=== PATIENT | female | born 2000 | race Two or more races ===

== ENCOUNTER 2020-10-15 23:02 | Emergency (ER) | payer MEDICAID, OTHER ==
[~2020-10-15] VITALS: Ht 152.4 cm; Wt 57.6 kg
[2020-10-16] MEDS ORDERED: ONDANSETRON ODT 4 MG TAB.RAPDIS SL ONE (01:00)
[2020-10-16] MEDS ORDERED: HYDROCODONE/APAP 5-325MG TABLET PO ONE (01:00)
[2020-10-16] MEDS ORDERED: HYDROCODONE/APAP 5-325MG TABLET ONE (01:11)
[2020-10-16] MEDS ORDERED: ONDANSETRON ODT 4 MG TAB.RAPDIS ONE (01:11)
[2020-10-16] MEDS ORDERED: HYDR-4209 PO (01:48)
[2020-10-16] MEDS ORDERED: ONDA4TAB5 PO (01:48)
--- NOTE | 2020-10-16 02:24 | NUR ---
Patient discharged to home in stable condition. Written and verbal after care instructions given. Patient verbalizes understanding of instructions. Stressed follow up or return to ER for worsening s/s.
[2020-10-16 02:25] VITALS: BP 110/78
== END 2020-10-16 02:26 | disposition home or self-care (01) ==
LOC: ER 23:06
DX: R51.9 Headache, unspecified (principal); Z20.822 Contact with and (suspected) exposure to COVID-19
CPT/HCPCS: 70450; Q0162

== ENCOUNTER 2021-02-03 23:41 | Emergency (ER) | payer OTHER ==
[~2021-02-03] VITALS: Ht 152.4 cm; Wt 59.0 kg
[~2021-02-03 23:41] MED LIST: HYDR-4209 PO; ONDA4TAB5 PO
--- NOTE | 2021-02-04 00:02 | NUR ---
Patient walked into ER with steady gait A/Ox3 c/o possible seizure 1hr [employer]. Patient states she was taking in an elevator with friend and her brother when she started feeling light head and started to get weak. She was lead to the floor by her friend and saw her eye rolled back. Patient states she woke up 6 seconds later A/Ox3 and speaking clearly and walked out.
--- NOTE | 2021-02-04 00:07 | NUR ---
Dr. Wynn on bedside for MSE.
[2021-02-04] MEDS ORDERED: ONDANSETRON 4 MG/2 ML VIAL IV ONE (00:30)
[2021-02-04] MEDS ORDERED: IV NORMAL SALINE 1000 ML BAG IV ONE (00:30)
[2021-02-04] MEDS ORDERED: ONDANSETRON 4 MG/2 ML VIAL ONE (00:31)
[2021-02-04 00:39] LABS: HEMATOCRIT 37.7 % (31.2-41.9); MEAN CORPUSCULAR HEMOGLOBIN 29.3 uug (24.7-32.8); MEAN CORPUSCULAR VOLUME 87.2 fL (75.5-95.3); PLATELET COUNT (AUTO) 350 K/uL (179-408)
[2021-02-04 00:40] LABS: CARBON DIOXIDE 25 mmol/L (21-32); CHLORIDE 105 mmol/L (98-107); GLUCOSE 98 mg/dL (74-106); POTASSIUM 4.2 mmol/L (3.5-5.1); UREA NITROGEN, BLOOD 13 mg/dL (7-18)
[2021-02-04 00:46] LABS: ALANINE AMINOTRANSFERASE 29 U/L (14-59); ALKALINE PHOSPHATASE 92 U/L (50-136); ASPARTATE AMINOTRANSFERASE 17 U/L (15-37); BILIRUBIN,TOTAL 0.2 mg/dL (0.2-1.0); TOTAL PROTEIN, SERUM 7.7 g/dL (6.4-8.2)
[2021-02-04 01:22] LABS: BILIRUBIN,DIRECT < 0.1 mg/dL (0.0-0.2)
--- NOTE | 2021-02-04 01:38 | NUR ---
Patient discharged to home in stable condition. Written and verbal after care instructions given. Patient verbalizes understanding of instructions. Stressed follow up or return to ER for worsening s/s. Patient ambulated fr the ER with steady gait. All belongings with patient.
[2021-02-04 01:40] VITALS: BP 119/71
== END 2021-02-04 01:40 | disposition home or self-care (01) ==
LOC: ER 23:44
DX: R55 Syncope and collapse (principal)
CPT/HCPCS: 36415; 80048; 80076; 85025; 93005; 96361; 96374; 99284; J2405; A4663; J7030

== ENCOUNTER 2021-03-08 20:01 | Emergency (ER) | payer OTHER ==
--- NOTE | 2021-03-09 00:14 | NUR ---
Pt not in waiting room.
== END 2021-03-09 00:14 | disposition left against medical advice (07) ==
LOC: ER 20:04
DX: Z53.21 Procedure and treatment not carried out due to patient leaving prior to being seen by health care provider (principal)

== ENCOUNTER 2022-05-12 15:46 | Emergency (ER) | payer MEDICAID, OTHER ==
[~2022-05-12] VITALS: Ht 160 cm; Wt 59.0 kg
--- NOTE | 2022-05-12 16:10 | NUR ---
PT IS IN ROOM #2A. DR LAWSON EVALUATED THE PT.
[2022-05-12] MEDS ORDERED: MORPHINE SULFATE 4 MG/1 ML DISP.SYRIN IV ONE (16:15)
[2022-05-12] MEDS ORDERED: MORPHINE SULFATE 4 MG/1 ML DISP.SYRIN ONE (16:16)
[2022-05-12 16:20] LABS: *BILIRUBIN,URIN NEGATIVE (NEGATIVE); *BLOOD, URINE NEGATIVE (NEGATIVE); *CLARITY,URINE CLEAR (CLEAR); *COLOR,URINE YELLOW (YELLOW); *KETONES,URINE NEGATIVE (NEGATIVE); *UROBILINOGEN,URINE 0.2 E.U./dl (NORMAL); LEUKOCYTE ESTERASE ,URINE NEGATIVE (NEGATIVE); NITRITE, URINE NEGATIVE (NEGATIVE); UGLUCOSE NEGATIVE (NEGATIVE)
[2022-05-12 16:21] LABS: HEMATOCRIT 38.6 % (31.2-41.9); MEAN CORPUSCULAR HEMOGLOBIN 28.8 uug (24.7-32.8); MEAN CORPUSCULAR VOLUME 86.7 fL (75.5-95.3); PLATELET COUNT (AUTO) 431 K/uL (179-408)
[2022-05-12] MEDS ORDERED: SWABABLE VALVE TRANSFER SET EA MC ONE (16:21)
[2022-05-12] MEDS ORDERED: IOHEXOL 300MG/ML 100 ML INFUS..BTL ONE (16:21)
[2022-05-12] MEDS ORDERED: IV NORMAL SALINE 250 ML IV ONE (16:22)
[2022-05-12 16:43] LABS: CREATININE 0.8 mg/dL (0.6-1.3); POTASSIUM 3.9 mmol/L (3.5-5.1)
[2022-05-12 16:44] LABS: *URINE HCG, QUAL NEGATIVE (NEGATIVE)
[2022-05-12 16:48] LABS: BILIRUBIN,TOTAL 0.3 mg/dL (0.2-1.0)
[2022-05-12] MEDS ORDERED: HALOPERIDOL LACTATE 5 MG/1 ML VIAL IV ONE (18:00)
[2022-05-12] MEDS ORDERED: HALOPERIDOL LACTATE 5 MG/1 ML VIAL ONE (18:13)
[2022-05-12] MEDS ORDERED: HYDR-4209 PO (18:26)
--- NOTE | 2022-05-12 18:42 | NUR ---
PT WAS D/C'd TO HOME. D/C INSTRUCTIONS GIVEN TO THE PT BY DR LAWSON.
[2022-05-12 18:43] VITALS: BP 131/66
== END 2022-05-12 18:44 | disposition home or self-care (01) ==
LOC: ER 15:46
DX: R10.12 Left upper quadrant pain (principal); D72.829 Elevated white blood cell count, unspecified; I88.0 Nonspecific mesenteric lymphadenitis
CPT/HCPCS: 99285; 74177; 96374; 96375; 80053; 81003; 84703; 83690; 85025; 36415; J1630; Q9967; J2270; A4663; J7040

== ENCOUNTER 2022-08-15 21:06 | Emergency (ER) | payer MEDICAID ==
[~2022-08-15] VITALS: Ht 152.4 cm; Wt 65.8 kg
--- NOTE | 2022-08-15 21:46 | NUR ---
Dr. Alcantar at bedside for MSE.
[2022-08-15 22:11] LABS: HEMATOCRIT 38.8 % (31.2-41.9); MEAN CORPUSCULAR HEMOGLOBIN 29.4 uug (24.7-32.8); MEAN CORPUSCULAR VOLUME 88.9 fL (75.5-95.3); PLATELET COUNT (AUTO) 396 K/uL (179-408)
[2022-08-15 22:18] LABS: CREATININE 0.8 mg/dL (0.6-1.3)
[2022-08-15 22:25] LABS: *BILIRUBIN,URIN NEGATIVE (NEGATIVE); *BLOOD, URINE NEGATIVE (NEGATIVE); *CLARITY,URINE CLOUDY (CLEAR); *COLOR,URINE LIGHT YELLOW (YELLOW); *KETONES,URINE NEGATIVE (NEGATIVE); *UROBILINOGEN,URINE 0.2 E.U./dl (NORMAL); LEUKOCYTE ESTERASE ,URINE TRACE (NEGATIVE); NITRITE, URINE NEGATIVE (NEGATIVE); UGLUCOSE NEGATIVE (NEGATIVE)
[2022-08-15 22:27] LABS: *URINE HCG, QUAL NEG (NEGATIVE)
[2022-08-15] MEDS ORDERED: MAGNESIUM HYDROXIDE 30 ML LIQUID UDC PO ONE (23:30)
[2022-08-15] MEDS ORDERED: MAG HYDROX/AL HYDROX/SIMETH 30 ML LIQUID UDC ONE (23:39)
--- NOTE | 2022-08-16 00:16 | NUR ---
Patient discharged to home in stable condition. Written and verbal after care instructions given. Patient verbalizes understanding of instructions. Stressed follow up or return to ER for worsening s/s. Patient out of ER with steady gait, no acute signs of distress, VSS, all belongings taken, provided with copies of lab and xray results.
[2022-08-16 00:17] VITALS: BP 104/71
[2022-08-16 01:33] LABS: BACTERIA,URINE FEW /HPF (NONE SEEN); RBC,URINE 0-3 /HPF (0-3); SQUAMOUS EPITHELIAL CELL,UR FEW /HPF (NONE SEEN)
== END 2022-08-16 00:18 | disposition home or self-care (01) ==
LOC: ER 21:06
DX: R10.31 Right lower quadrant pain (principal); R10.32 Left lower quadrant pain; K59.00 Constipation, unspecified; Z79.899 Other long term (current) drug therapy
CPT/HCPCS: 36415; 74018; 76856; 84703; 85025; A4663

== ENCOUNTER 2022-11-22 21:23 | Emergency (ER) | payer MEDICAID ==
[~2022-11-22] VITALS: Ht 165.1 cm; Wt 65.8 kg
[2022-11-22] MEDS ORDERED: METOCLOPRAMIDE HCL 10 MG/2 ML VIAL IV ONE (22:45)
[2022-11-22] MEDS ORDERED: KETOROLAC TROMETHAMINE 30 MG INJ IVP ONE (22:45)
[2022-11-22] MEDS ORDERED: IV NS 1000 ML 1,000 ML IV ONE (22:45)
[2022-11-22] MEDS ORDERED: diphenhydrAMINE 50 MG/1 ML VIAL IV ONE (22:45)
[2022-11-22] MEDS ORDERED: diphenhydrAMINE 50 MG/1 ML VIAL ONE (22:52)
[2022-11-22] MEDS ORDERED: KETOROLAC TROMETHAMINE 30 MG INJ ONE (22:52)
[2022-11-22 22:53] LABS: BASOPHILS % (AUTO) 0.2 % (0.0-2.0); EOSINOPHILS # (AUTO) 0.9 K/uL (0.0-0.7); EOSINOPHILS % (AUTO) 7.8 % (0.0-7.0); HEMATOCRIT 38.9 % (31.2-41.9); HEMOGLOBIN 13.3 g/dL (10.9-14.3); LYMPHOCYTES # (AUTO) 1.4 K/uL (0.8-4.8); MEAN CORPUSCULAR HGB CONC 34 g/dL (32.3-35.6); MEAN CORPUSCULAR VOLUME 87.8 fL (75.5-95.3); MONOCYTES # (AUTO) 0.9 K/uL (0.1-1.30); MONOCYTES % (AUTO) 8.5 % (0.0-11.0); NEUTROPHILS # (AUTO) 7.8 K/uL (1.8-8.9); NEUTROPHILS % (AUTO) 70.5 % (38.5-71.5); PLATELET COUNT (AUTO) 380 K/uL (179-408); RED BLOOD CELL COUNT(AUTO) 4.43 MIL/uL (3.63-4.92); RED CELL DISTRIBUTION WIDTH 12.9 % (12.3-17.7)
[2022-11-22] MEDS ORDERED: METOCLOPRAMIDE HCL 10 MG/2 ML VIAL ONE (22:53)
[2022-11-22 23:02] LABS: DIFFERENTIAL COMMENT 1
[2022-11-22 23:03] LABS: *URINE HCG, QUAL NEGATIVE (NEGATIVE)
[2022-11-22 23:09] LABS: CALCIUM 9.3 mg/dL (8.5-10.1); MAGNESIUM 2.2 mg/dL (1.8-2.4); POTASSIUM 3.4 mmol/L (3.5-5.1)
[2022-11-23] MEDS ORDERED: METO-295 PO (00:32)
[2022-11-23] MEDS ORDERED: DIPH25CA83 PO (00:32)
[2022-11-23] MEDS ORDERED: NAPR-1164 PO (00:32)
[2022-11-23 00:46] VITALS: O2SAT 99
== END 2022-11-23 00:46 | disposition home or self-care (01) ==
LOC: ER 21:25
DX: G43.909 Migraine, unspecified, not intractable, without status migrainosus (principal); Z79.899 Other long term (current) drug therapy
CPT/HCPCS: 99284; 96374; 96375; 96361; 80048; 84703; 83735; 85025; 36415; J1200; J1885; J2765; J7040; A4663

== ENCOUNTER 2023-03-30 20:57 | Emergency (ER) | payer SELFPAY ==
[~2023-03-30] VITALS: Ht 152.4 cm; Wt 68.0 kg
[~2023-03-30 20:57] MED LIST changes: +DIPH25CA83 PO; +METO-295 PO; +NAPR-1164 PO
[2023-03-30 22:03] LABS: *BILIRUBIN,URIN NEGATIVE (NEGATIVE); *BLOOD, URINE NEGATIVE (NEGATIVE); *COLOR,URINE YELLOW (YELLOW); *KETONES,URINE 1+ (NEGATIVE); *PROTEIN,URINE NEGATIVE (NEGATIVE); LEUKOCYTE ESTERASE ,URINE NEGATIVE (NEGATIVE); NITRITE, URINE NEGATIVE (NEGATIVE); UGLUCOSE NEGATIVE (NEGATIVE)
[2023-03-30 22:04] LABS: *CLARITY,URINE EH094502 (CLEAR); RBC,URINE 0-3 /HPF (0-3); WBC,URINE 0-3 /HPF (0-3)
[2023-03-30 22:06] LABS: *URINE HCG, QUAL NEGATIVE (NEGATIVE)
[2023-03-31] MEDS ORDERED: AZIT250T PO (02:06)
[2023-03-31] MEDS ORDERED: HYDROCODONE/APAP 5-325MG TABLET ONE (02:08)
[2023-03-31] MEDS ORDERED: HYDROCODONE/APAP 5-325MG TABLET PO ONE (02:15)
[2023-03-31 02:22] VITALS: BP 124/68; TEMP 98; O2SAT 98
== END 2023-03-31 02:24 | disposition home or self-care (01) ==
LOC: ER 21:00
DX: J03.90 Acute tonsillitis, unspecified (principal); R10.2 Pelvic and perineal pain; J45.909 Unspecified asthma, uncomplicated; Z79.899 Other long term (current) drug therapy; Z20.822 Contact with and (suspected) exposure to COVID-19
CPT/HCPCS: 71045; 84703; 86403; A4606; A4663